=== PATIENT | male | born 1945 | race Caucasian/White ===

== ENCOUNTER 2017-10-03 10:22 | Day surgery (SDC) | payer OTHER ==
[2017-10-03] MEDS ORDERED: NS 500 ML IV 500 ML IV ONE (10:45)
[2017-10-03] MEDS ORDERED: TETRACAINE 0.5% OPHTH 1 DOSE AFFEYE ONE ×2 (11:00→14:21)
[2017-10-03] MEDS ORDERED: VIGAMOX 0.5% OPHTH 1 DOSE AFFEYE ONE ×5 (11:05→14:44)
[2017-10-03] MEDS ORDERED: PROLENSA OPHTH 1 DOSE AFFEYE ONE (11:16)
[2017-10-03] MEDS ORDERED: ALPHAGAN-P OPHTH 1 DOSE AFFEYE ONE (11:17)
[2017-10-03] MEDS ORDERED: AK-DILATE 2.5% OPHTH 1 DOSE OP ONE ×3 (11:18→11:20)
[2017-10-03] MEDS ORDERED: CYCLOGYL 1% OPHTH 1 DOSE OP ONE ×3 (11:18→11:20)
[2017-10-03] MEDS ORDERED: MYDRIACIL OPHTH 1 DOSE AFFEYE ONE ×3 (11:18→11:20)
[2017-10-03] MEDS ORDERED: BETADINE OPHTH SOLN 5% EACHEYE ONE (14:21)
[2017-10-03] MEDS ORDERED: ADRENALINE CHL INJ IJ ONE (14:32)
[2017-10-03] MEDS ORDERED: BSS OPHTH (PLAIN) 500 ML with VANCOMYCIN HCL 500 MG VIAL 25 MG, ADRENALINE CHL INJ 1 MG IR ONE ×3 (14:32)
[2017-10-03] MEDS ORDERED: DUOVISC IO ONE (14:32)
[2017-10-03] MEDS ORDERED: XYLOCAINE-MPF 1% IJ ONE (14:32)
[2017-10-03 15:03] VITALS: BP 189/82
== END 2017-10-03 15:07 | disposition home or self-care (01) ==
LOC: SURG1 10:22
PROVIDERS: ATTEND Ophthalmology
PROC: 08DK3ZZ Extraction of Left Lens, Percutaneous Approach (ICD-10-PCS; principal; 2017-10-03 21:00)
PROC: 08RK3JZ Replacement of Left Lens with Synthetic Substitute, Percutaneous Approach (ICD-10-PCS; principal; 2017-10-03 21:00)
DX: H25.12 Age-related nuclear cataract, left eye (principal); H25.012 Cortical age-related cataract, left eye
CPT/HCPCS: 99100; A4222; A4217; J0170; J3370

== ENCOUNTER 2017-10-17 08:05 | Day surgery (SDC) | payer OTHER ==
[2017-10-17] MEDS ORDERED: NS 500 ML IV 500 ML IV ONE (08:48)
[2017-10-17] MEDS ORDERED: TETRACAINE 0.5% OPHTH 1 DOSE AFFEYE ONE ×3 (08:50→11:26)
[2017-10-17] MEDS ORDERED: VIGAMOX 0.5% OPHTH 1 DOSE AFFEYE ONE ×5 (08:52→11:37)
[2017-10-17] MEDS ORDERED: PROLENSA OPHTH 1 DOSE AFFEYE ONE (09:04)
[2017-10-17] MEDS ORDERED: ALPHAGAN-P OPHTH 1 DOSE AFFEYE ONE (09:06)
[2017-10-17] MEDS ORDERED: CYCLOGYL 1% OPHTH 1 DOSE OP ONE ×6 (09:08→09:18)
[2017-10-17] MEDS ORDERED: AK-DILATE 2.5% OPHTH 1 DOSE OP ONE ×6 (09:08→09:18)
[2017-10-17] MEDS ORDERED: MYDRIACIL OPHTH 1 DOSE AFFEYE ONE ×6 (09:08→09:18)
[2017-10-17] MEDS ORDERED: VERSED ONE (10:17)
[2017-10-17] MEDS ORDERED: DIPRIVAN VIAL ONE (10:17)
[2017-10-17] MEDS ORDERED: BETADINE OPHTH SOLN 5% EACHEYE ONE (11:23)
[2017-10-17] MEDS ORDERED: BSS OPHTH (PLAIN) 500 ML with VANCOMYCIN HCL 500 MG VIAL 25 MG, ADRENALINE CHL INJ 1 MG IR ONE ×3 (11:26)
[2017-10-17] MEDS ORDERED: ADRENALINE CHL INJ IJ ONE (11:26)
[2017-10-17] MEDS ORDERED: XYLOCAINE-MPF 1% IJ ONE (11:26)
[2017-10-17] MEDS ORDERED: DUOVISC IO ONE (11:26)
[2017-10-17 12:34] VITALS: BP 148/78
== END 2017-10-17 12:00 | disposition home or self-care (01) ==
LOC: SURG1 08:05
PROVIDERS: ATTEND Ophthalmology
PROC: 08RJ3JZ Replacement of Right Lens with Synthetic Substitute, Percutaneous Approach (ICD-10-PCS; principal; 2017-10-17 12:00)
PROC: 08DJ3ZZ Extraction of Right Lens, Percutaneous Approach (ICD-10-PCS; principal; 2017-10-17 12:00)
DX: H25.11 Age-related nuclear cataract, right eye (principal); H25.011 Cortical age-related cataract, right eye
CPT/HCPCS: 99100; A4217; J0170; J2250; J3370; J3490